=== PATIENT | female | born 1985 | race Caucasian/White ===

== ENCOUNTER 2017-11-06 21:28 | Inpatient (IN) | payer MEDICAID ==
[~2017-11-06] VITALS: Ht 160 cm; Wt 53.6 kg
[2017-11-06] MEDS ORDERED: ondansetron/PF 4mg/2ml inj IV ONE ×2 (21:35→21:40)
[2017-11-06] MEDS: thiamine inj. 100 MG, MVI, adult No.4 with vit. K 10 ML in dextrose 5% water 500ml 489 ML IV SCH ×3 (21:40)
[2017-11-06] MEDS ORDERED: naloxone 2mg/2ml inj IV ONE (21:43)
[2017-11-06] MEDS ORDERED: naloxone 2mg/2ml inj IV STA (21:43)
[2017-11-06 21:54] LABS: BASOPHILS % (AUTO) 0.5 % (0-1); EOSINOPHILS # (AUTO) 0.8 X10'3 (0-0.9); EOSINOPHILS % (AUTO) 10.1 % (0-6); HEMATOCRIT 37.8 % (35.0-45.0); HEMOGLOBIN 12.9 g/dl (12.0-16.0); LYMPHOCYTES # (AUTO) 2.7 X10'3 (1.1-4.8); LYMPHOCYTES % (AUTO) 31.9 % (21-51); MEAN CORPUSCULAR HEMOGLOBIN 32.4 PG (27.0-31.0); MEAN CORPUSCULAR HGB CONC 34.1 % (33.0-36.5); MEAN CORPUSCULAR VOLUME 95.1 FL (78-98); MEAN PLATELET VOLUME 9.9 FL (7.4-10.4); MONOCYTES # (AUTO) 0.5 X10'3 (0-0.9); MONOCYTES % (AUTO) 6.6 % (2-12); NEUTROPHILS # (AUTO) 4.2 X10'3 (1.8-7.7); NEUTROPHILS % (AUTO) 50.9 % (42-75); PLATELET COUNT 208 X10'3 (140-440); RED BLOOD COUNT 3.97 X10'6 (4.20-5.60); RED CELL DISTRIBUTION WIDTH 13.4 % (11.5-14.5); WHITE BLOOD COUNT 8.3 X10'3 (4.5-11.0)
[2017-11-06] MEDS ORDERED: propofol 1000mg/100ml bottle 100 ML IV PRN (21:59)
[2017-11-06 22:04] LABS: HCG SERUM QL NEGATIVE
[2017-11-06 22:06] LABS: INR 0.9 INR; PARTIAL THROMBOPLASTIN TIME 25 SECONDS (22-32); PROTHROMBIN TIME 9.6 SECONDS (9.0-12.0)
[2017-11-06] MEDS ORDERED: propofol 1000mg/100ml bottle 100 ML IV ONE (22:08)
[2017-11-06 22:16] LABS: ALANINE AMINOTRANSFERASE 19 U/L (12-78); ALBUMIN 4.1 G/DL (3.4-5.0); ALBUMIN/GLOBULIN RATIO 1.4 (1.1-1.5); ALKALINE PHOSPHATASE 35 IU/L (46-116); ANION GAP 14 (8-16); ASPARTATE AMINO TRANSFERASE 15 U/L (10-37); BILIRUBIN,TOTAL 0.1 MG/DL (0.1-1.0); BLOOD UREA NITROGEN 9 MG/DL (7-18); CALCIUM 8.6 MG/DL (8.5-10.1); CHLORIDE 106 MMOL/L (99-107); GLUCOSE 99 MG/DL (70-104); MAGNESIUM 2.2 MG/DL (1.5-2.4); PHOSPHORUS 4.3 MG/DL (2.3-4.5); POTASSIUM 3.6 MMOL/L (3.5-5.1); SODIUM 142 MMOL/L (135-145); TOTAL CARBON DIOXIDE 22.4 MMOL/L (24-32); TOTAL PROTEIN 7.1 G/DL (6.4-8.2); eGFR > 90 ML/MIN
[2017-11-06 22:26] LABS: ETHANOL 0.359 GM/DL (0.0-0.010)
[2017-11-06 22:27] LABS: ACETAMINOPHEN < 2.0 UG/ML (10-30)
[2017-11-06 22:34] LABS: URINE AMPHETAMINE SCREEN NEGATIVE (Neg); URINE BARBITUATE SCREEN NEGATIVE (Neg); URINE BENZODIAZEPINES SCREEN NEGATIVE (Neg); URINE CANNABINOID SCREEN NEGATIVE (Neg); URINE COCAINE SCREEN NEGATIVE (Neg); URINE METHADONE SCREEN NEGATIVE (Neg); URINE OPIATE SCREEN NEGATIVE (Neg); URINE PHENCYCLIDINE SCREEN NEGATIVE (Neg)
[2017-11-06 22:36] LABS: ABG OXYGEN SATURATION 98.4 % (95-98); ABG PCO2 (T) 32.4 mmHg (32.0-45.0); ABG PH (T) 7.356 (7.350-7.450); ABG PO2 (T) 147.2 mmHg (83-108); FCOHb 0.3 % (0.5-1.5); FMetHb 0.2 % (0.3-1.12); FO2Hb 97.9 % (94-100); MINUTE VOLUME 8 L/min; PATIENT TEMPERATURE 35.6; PEEP 5 cm H2O; RESPIRATORY RATE 12 b/min; RESPIRATORY RATE (OBSERVED) 20 b/min; TIDAL VOLUME 400 mL; TOTAL HEMOGLOBIN 12.8 G/dl (12.0-16.0)
[2017-11-06] MEDS ORDERED: succinylcholine 20mg/ml inj IV STA (22:56)
[2017-11-06] MEDS ORDERED: etomidate 2mg/ml inj. IV ONE (23:00)
[2017-11-06] MEDS ORDERED: potassium Cl 40MEQ/NS 500ml 500 ML IV PRN ×2 (23:20)
[2017-11-06] MEDS ORDERED: ondansetron/PF 4mg/2ml inj IV PRN (23:20)
[2017-11-06] MEDS ORDERED: magnesium 2GM in 50ml NS 50 ML IV PRN (23:20)
[2017-11-06] MEDS ORDERED: magnesium 4gm in 100ml NS 100 ML IV PRN (23:20)
[2017-11-06] MEDS ORDERED: acetaminophen 650mg rectal suppository RC PRN (23:20)
[2017-11-06] MEDS ORDERED: ipratropium/albuterol 3ml nebule NEB PRN (23:20)
[2017-11-07] VITALS (20 sets, daily range): BP systolic 97–151; BP diastolic 53–98
[2017-11-07] MEDS ORDERED: midazolam 100mg in NS 100ml 100 ML IV PRN (00:50)
[2017-11-07 05:23] LABS: BASOPHILS % (AUTO) 0.2 % (0-1); EOSINOPHILS # (AUTO) 0.3 X10'3 (0-0.9); EOSINOPHILS % (AUTO) 2.8 % (0-6); HEMATOCRIT 37.3 % (35.0-45.0); HEMOGLOBIN 12.5 g/dl (12.0-16.0); LYMPHOCYTES # (AUTO) 1.5 X10'3 (1.1-4.8); LYMPHOCYTES % (AUTO) 13.4 % (21-51); MEAN CORPUSCULAR HEMOGLOBIN 32.1 PG (27.0-31.0); MEAN CORPUSCULAR HGB CONC 33.5 % (33.0-36.5); MEAN CORPUSCULAR VOLUME 95.6 FL (78-98); MEAN PLATELET VOLUME 10.1 FL (7.4-10.4); MONOCYTES # (AUTO) 0.7 X10'3 (0-0.9); MONOCYTES % (AUTO) 6.2 % (2-12); NEUTROPHILS # (AUTO) 8.4 X10'3 (1.8-7.7); NEUTROPHILS % (AUTO) 77.4 % (42-75); PLATELET COUNT 186 X10'3 (140-440); RED CELL DISTRIBUTION WIDTH 13.5 % (11.5-14.5); WHITE BLOOD COUNT 10.8 X10'3 (4.5-11.0)
[2017-11-07 05:40] LABS: PROTHROMBIN TIME 10.1 SECONDS (9.0-12.0)
[2017-11-07 06:14] LABS: ALANINE AMINOTRANSFERASE 25 U/L (12-78); ALBUMIN 3.6 G/DL (3.4-5.0); ALBUMIN/GLOBULIN RATIO 1.3 (1.1-1.5); ALKALINE PHOSPHATASE 31 IU/L (46-116); ANION GAP 13 (8-16); ASPARTATE AMINO TRANSFERASE 24 U/L (10-37); BILIRUBIN,TOTAL 0.2 MG/DL (0.1-1.0); BLOOD UREA NITROGEN 7 MG/DL (7-18); BUN/CREATININE RATIO 10.8 (6.6-38.0); CALCIUM 7.7 MG/DL (8.5-10.1); CHLORIDE 110 MMOL/L (99-107); CREATININE 0.65 MG/DL (0.40-0.90); GLUCOSE 95 MG/DL (70-104); MAGNESIUM 1.9 MG/DL (1.5-2.4); PHOSPHORUS 3.8 MG/DL (2.3-4.5); POTASSIUM 3.7 MMOL/L (3.5-5.1); SODIUM 147 MMOL/L (135-145); TOTAL CARBON DIOXIDE 24.5 MMOL/L (24-32); TOTAL PROTEIN 6.3 G/DL (6.4-8.2); eGFR > 90 ML/MIN
[2017-11-07] MEDS: famotidine/PF 10 mg/ml inj IV SCH ×2 (08:02→21:08)
[2017-11-07] MEDS: thiamine inj. 100 MG, MVI, adult No.4 with vit. K 10 ML in dextrose 5% water 500ml 489 ML IV SCH ×3 (09:08)
[2017-11-07] MEDS ORDERED: acetaminophen 650mg rectal suppository RC PRN (14:00)
[2017-11-07] MEDS: acetaminophen 325mg tablet PO PRN (14:17)
[2017-11-07] MEDS ORDERED: doxepin 25mg capsule PO SCH (21:00)
[2017-11-07] MEDS ORDERED: HYDROcodone/acetaminophen 5mg/325mg tablet PO PRN (21:35)
[2017-11-07] MEDS ORDERED: ondansetron/PF 4mg/2ml inj IV PRN (21:35)
[2017-11-08] VITALS (10 sets, daily range): BP systolic 94–131; BP diastolic 54–74
[2017-11-08 05:33] LABS: BASOPHILS % (AUTO) 0.7 % (0-1); EOSINOPHILS # (AUTO) 0.4 X10'3 (0-0.9); EOSINOPHILS % (AUTO) 6.2 % (0-6); HEMATOCRIT 35.7 % (35.0-45.0); HEMOGLOBIN 12.1 g/dl (12.0-16.0); LYMPHOCYTES # (AUTO) 1.9 X10'3 (1.1-4.8); LYMPHOCYTES % (AUTO) 27.1 % (21-51); MEAN CORPUSCULAR HEMOGLOBIN 32.5 PG (27.0-31.0); MEAN CORPUSCULAR VOLUME 95.5 FL (78-98); MONOCYTES # (AUTO) 0.5 X10'3 (0-0.9); MONOCYTES % (AUTO) 7.9 % (2-12); NEUTROPHILS % (AUTO) 58.1 % (42-75); PLATELET COUNT 165 X10'3 (140-440); RED BLOOD COUNT 3.74 X10'6 (4.20-5.60); RED CELL DISTRIBUTION WIDTH 13.3 % (11.5-14.5); WHITE BLOOD COUNT 6.9 X10'3 (4.5-11.0)
[2017-11-08 05:45] LABS: INR 0.9 INR; PROTHROMBIN TIME 9.8 SECONDS (9.0-12.0)
[2017-11-08 05:57] LABS: ALANINE AMINOTRANSFERASE 21 U/L (12-78); ALBUMIN 3.4 G/DL (3.4-5.0); ALBUMIN/GLOBULIN RATIO 1.2 (1.1-1.5); ALKALINE PHOSPHATASE 33 IU/L (46-116); ANION GAP 7 (8-16); ASPARTATE AMINO TRANSFERASE 16 U/L (10-37); BILIRUBIN,TOTAL 0.5 MG/DL (0.1-1.0); BLOOD UREA NITROGEN 10 MG/DL (7-18); BUN/CREATININE RATIO 13.2 (6.6-38.0); CALCIUM 8.8 MG/DL (8.5-10.1); CHLORIDE 106 MMOL/L (99-107); CREATININE 0.76 MG/DL (0.40-0.90); GLUCOSE 98 MG/DL (70-104); MAGNESIUM 1.9 MG/DL (1.5-2.4); PHOSPHORUS 3.9 MG/DL (2.3-4.5); POTASSIUM 3.7 MMOL/L (3.5-5.1); SODIUM 142 MMOL/L (135-145); TOTAL CARBON DIOXIDE 29.1 MMOL/L (24-32); TOTAL PROTEIN 6.3 G/DL (6.4-8.2); eGFR 88 ML/MIN
[2017-11-08] MEDS ORDERED: iohexol 300mg/ml 100ml inj. ONE (07:43)
[2017-11-08] MEDS: famotidine/PF 10 mg/ml inj IV SCH (08:05)
[2017-11-08] MEDS: acetaminophen 325mg tablet PO PRN (08:06)
[2017-11-08] MEDS ORDERED: multivitamins, therapeutics tablet PO SCH (08:30)
[2017-11-08] MEDS ORDERED: thiamine 100mg tablet PO SCH (08:35)
[2017-11-08] MEDS ORDERED: DOXE25CA3 PO (11:08)
== END 2017-11-08 11:52 | disposition home or self-care (01) | DRG 133 ==
LOC: ER 21:28 → ED HOLD 23:17 → CICU 2S 11-07 00:27
PROVIDERS: ADMIT Internal Medicine Critical Care Medicine
PROC: 5A1935Z Respiratory Ventilation, Less than 24 Consecutive Hours (ICD-10-PCS; principal; 2017-11-06)
PROC: 0BH17EZ Insertion of Endotracheal Airway into Trachea, Via Natural or Artificial Opening (ICD-10-PCS; 2017-11-06)
PROC: BW241ZZ Computerized Tomography (CT Scan) of Chest and Abdomen using Low Osmolar Contrast (ICD-10-PCS; 2017-11-08)
DX: J96.01 Acute respiratory failure with hypoxia (principal); G93.40 Encephalopathy, unspecified; F10.129 Alcohol abuse with intoxication, unspecified; Y90.1 Blood alcohol level of 20-39 mg/100 ml; R91.1 Solitary pulmonary nodule
CPT/HCPCS: 36415; 36600; 70450; 71045; 71260; 80053; 80305; 80320; 80329; 82140; 82803; 83735; 83874; 84100; 84703; 85018; 85025; 85610; 85730; 87070; 93005; 94002; 94003; 94640; 94760; 96374; 96375; 99291; A6213; A6449; J2250; J2405; J2704; J3411; J3490; J7030; J7060; Q9967